=== PATIENT | male | born 1940 | race Two or more races ===

== ENCOUNTER 2025-08-12 06:17 | Day surgery (SDC) | payer MEDICARE, OTHER ==
[2025-08-07 11:13] LABS: Hematocrit 47.4 % (41.0-53.0); Hemoglobin 15.7 g/dL (13.5-17.5); Mean Corpuscular Hemoglobin 33.5 pg (28.0-32.0); Mean Corpuscular Volume 101.1 fL (80.0-100.0); Nucleated Red Blood Cells % 0.2 %
[2025-08-07 11:26] LABS: INR 1.03 (0.9-1.15); Partial Thromboplastin Time 25.2 SEC (24.5-34.5); Prothrombin Time 10.9 sec (9.3-11.8)
[2025-08-07 11:31] LABS: Urine Protein, UAD Negative (Negative)
[2025-08-07 11:38] LABS: Alanine Aminotransferase 30 U/L (7-40); Alkaline Phosphatase 109 U/L (46-116); Anion Gap 7 (5-15); BUN/Creatinine Ratio 17.5 (10.0-20.0); Blood Urea Nitrogen 20 mg/dL (9-23); Calcium 9.7 mg/dL (8.7-10.4); Chloride 105 mmol/L (98-107); Glucose 102 mg/dL (74-106); Potassium 4.8 mmol/L (3.5-5.1); Sodium 145 mmol/L (136-145); Total Protein 7.1 g/dL (5.7-8.2)
[2025-08-07 11:39] LABS: Albumin 4.4 g/dL (3.2-4.8); Bilirubin, Total 1.0 mg/dL (0.2-1.0); Carbon Dioxide 33 mmol/L (20-31)
[~2025-08-12] VITALS: Ht 190.5 cm; Wt 83.9 kg
[~2025-08-12 06:17] MED LIST: AMIO200T33 PO; ASPI-543 PO; GABA400C PO; METO25TA36 PO; RIV20T PO; SODI10PA PO; TRAM50TA2 PO
[2025-08-12] MEDS ORDERED: ceFAZolin 2 GM/D5W50ml 50 ML IV ONE (06:36)
[2025-08-12] MEDS ORDERED: ROPIVACAINE 0.5% (5MG/ML) 20ML AMPULE IJ ONE (06:59)
[2025-08-12] MEDS ORDERED: BACITRACIN TOP OINT 1 UD PKG TOP ONE (06:59)
[2025-08-12] MEDS ORDERED: MEPERIDINE HCL (25 MG/ML) 1ML VIAL ONE (07:34)
[2025-08-12] MEDS ORDERED: fentaNYL CITRATE 100 MCG/2 ML VL ONE (07:34)
[2025-08-12] MEDS ORDERED: MIDAZOLAM HCL 2MG/2ML 2ml VIAL (1mg/ml) ONE (07:34)
[2025-08-12] MEDS ORDERED: PROPOFOL 10 MG/ML 20 ML IV ONE (07:47)
[2025-08-12 08:20] VITALS: PULSE 68; RESP 9; TEMP 97.3; O2SAT 98
--- NOTE | 2025-08-12 08:20 | DVHOP2 ---
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 Jackson MD Anesthesia: Mac Consent: The patient was informed of the risks and benefits of the procedure. These include but are not limited to complications of anesthesia, postoperative infection, incomplete relief of symptoms, recurrence of symptoms, damage to blood vessels, nerves and tendons, deep venous thrombosis, pulmonary embolism and possible need for repeat surgery in the future. Estimated Blood Loss: Less than 1 cc Name of Procedure Performed Arthroplasty with K-wire fixation 3rd right toe Procedure Details Procedure Details: The patient was brought to the operating room placed on the operating table in the supine position. After MAC anesthesia was achieved approximately 12 cc of 0.5% ropivacaine plain was injected in V block fashion to the 3rd right toe without incident. At this time, the right foot and leg was prepped and draped in the proper aseptic manner which time an ankle tourniquet was applied and inflated to 250 mm Hg pressure after appropriate elevation and exsanguination utilizing an Esmarch. Attention was now directed to procedure 1. Procedure 1. Arthroplasty with K-wire fixation 3rd right toe: Two semi elliptical incisions were placed on the dorsal aspect of the 3rd right toe the incision was carried deep by means of sharp and blunt dissection with care being taken to preserve all underlying vital structures. All bleeders were bovied or ligated as necessary. Deep dissection was carried down to the level of the extensor tendon to the 3rd right toe. Utilizing a number 64 blade, a transverse resection of the tendon was performed and the medial and lateral collateral ligaments were resected without incident the tendon was reflected proximally and utilizing a small power saw the head of the proximal phalanx was resected sent to pathology as specimen. Area was rasped smooth the rough edges had remained area was flushed with copious amounts of irrigant was aspirated no debris was noted. At this time the 3rd rectal was inspected it was noted that there is remained some contracture due to the tight flexor tendon utilizing 64 blade the flexor tendon was tenotomized at the level of the PIPJ without incident and immediately we noticed that the toe relaxed in rectus anatomic position. At this time utilizing a 0.045 K-wire the K-wire was introduced into the intermediate phalanx out the distal phalanx with the toe held in rectus position K-wire was now retrograded into the residual portion of the proximal phalanx again with the toe held in a rectus position without incident the toe was inspected and was noted to be in nice anatomic rectus position. The K-wire wire was bent and cut and capped without incident. At this time the tendon was reanastomosed utilizing 4-0 Vicryl suture subcuticular cyst 4-0 Vicryl sutures skin with 4-0 nylon suture. Surgical dressings consisted of bacitracin ointment Xeroform 4x4s Kerlix and Coban to yield a mildly compressive type bandage. Ankle tourniquet was released and immediate normal reactive hyperemia returned to all digits with good digital perfusion present. There were no intraoperative complications the patient left the operating room to recovery room in stable condition. It is important to note that the patient was prophylaxed with 2 g of IV Ancef prior to surgery. Patient will be given a postoperative surgical shoe which he was advised to remained in the surgical shoe at all times keep dressings clean and dry and intact. The patient also has postop medications at home to manage the operative pain should he have pain at that time. Also patient has his 1st postoperative follow visit to my office as well. Specimen: Bone Condition Stable Disposition Home MOE SANDS DPM Aug 12, 2025 08:20
[2025-08-12 09:06] VITALS: BP 122/83; PULSE 60; RESP 17; O2SAT 99
== END 2025-08-12 09:25 | disposition home or self-care (01) ==
LOC: SUR 06:17
PROVIDERS: ATTEND Podiatrist Foot & Ankle Surgery
DX: M20.41 Other hammer toe(s) (acquired), right foot (principal); L97.519 Non-pressure chronic ulcer of other part of right foot with unspecified severity; I10 Essential (primary) hypertension; I25.10 Atherosclerotic heart disease of native coronary artery without angina pectoris; G89.29 Other chronic pain; Z95.0 Presence of cardiac pacemaker; Z98.890 Other specified postprocedural states
CPT/HCPCS: 28285; 36415; 80053; 81001; 85025; 85610; 85730; 88304; 88311; A4649; C1713; J0690; J1100; J2175; J2250; J2704; J2795; J3010